=== PATIENT | male | born 1940 | race Caucasian/White ===

== ENCOUNTER 2022-04-28 21:27 | Emergency (ER) | payer MEDICARE, OTHER ==
[2022-04-28 21:38] VITALS: BP 148/89; PULSE 77
[2022-04-28 22:07] LABS: CHLORIDE,CL 99 mmol/L (98-107); SODIUM,NA 133 mmol/L (136-145)
[2022-04-28 22:08] LABS: ESTIMATED GFR 52 mL/min (>=60)
== END 2022-04-28 22:50 | disposition home or self-care (01) ==
LOC: LL.ED 21:27
DX: S50.02XA Contusion of left elbow, initial encounter (principal); S00.83XA Contusion of other part of head, initial encounter; S80.01XA Contusion of right knee, initial encounter; Z88.0 Allergy status to penicillin; Z79.899 Other long term (current) drug therapy; Z79.82 Long term (current) use of aspirin; Z86.73 Personal history of transient ischemic attack (TIA), and cerebral infarction without residual deficits; W10.9XXA Fall (on) (from) unspecified stairs and steps, initial encounter
CPT/HCPCS: 36415; 70450; 72040; 73080-LT; 80053; 81001; 83735; 85025; 99284

== ENCOUNTER 2023-08-26 12:58 | Inpatient (IN) | payer MEDICARE, OTHER ==
[2023-08-26 13:40] LABS: BASOPHILS ABSOLUTE AUTO 0.03 K/uL (0.00-0.20); BASOPHILS PERCENT AUTO 0.3 % (0.0-2.0); EOSINOPHILS ABSOLUTE AUTO 0.15 K/uL (0.00-0.50); EOSINOPHILS PERCENT AUTO 1.6 % (0.0-5.0); HEMATOCRIT 45.2 % (39.0-49.0); HEMOGLOBIN 15.2 g/dL (13.1-16.8); LYMPHOCYTES ABSOLUTE AUTO 1.04 K/uL (0.50-3.50); LYMPHOCYTES PERCENT AUTO 11.1 % (10.0-50.0); MEAN CORPUSCULAR HEMOGLOBIN 34.1 pg (28.2-33.3); MEAN CORPUSCULAR HGB CONC 33.6 g/dL (31.7-36.0); MEAN CORPUSCULAR VOLUME 101.3 fL (84.0-98.0); MONOCYTES ABSOLUTE AUTO 0.97 K/uL (0.00-1.00); MONOCYTES PERCENT AUTO 10.3 % (2.0-14.0); NEUTROPHILS ABSOLUTE AUTO 7.21 K/uL (1.40-7.00); NEUTROPHILS PERCENT AUTO 76.7 % (45.0-80.0); PLATELET COUNT,PLT 234 K/uL (150-350); RED BLOOD CELL COUNT 4.46 M/uL (4.33-5.41); RED CELL DISTRIBUTION WIDTH 12.5 % (11.2-14.1); WHITE BLOOD CELL COUNT,WBC 9.4 K/uL (4.0-10.2)
[2023-08-26] MEDS ORDERED: Morphine 2 MG/ML SYRINGE IVPUSH ONE ×2 (13:57→17:08)
[2023-08-26] MEDS ORDERED: Ondansetron 4 MG/2 ML SDV IVPUSH ONE (13:57)
[2023-08-26 13:59] LABS: ALBUMIN 3.5 g/dL (3.4-5.0); ANION GAP 8.7 meq/L (7-15); BILIRUBIN TOTAL 0.6 mg/dL (0.2-1.0); CALCIUM 8.7 mg/dL (8.5-10.1); CARBON DIOXIDE,CO2 27.3 mmol/L (21.0-32.0); CREATININE 0.97 mg/dL (0.51-1.17); EST CRCL DRUG DOSING (CG) 51.16 mL/min; POTASSIUM,K 4.1 mmol/L (3.5-5.1); PROTEIN TOTAL,TP 6.5 g/dL (6.4-8.2)
[2023-08-26] MEDS: Sodium Chloride 0.9% 10 ML Syringe FLUSH PRN ×3 (14:38→20:03)
[2023-08-26] MEDS ORDERED: Morphine 2 MG/ML SYRINGE SUBCUT PRN (18:10)
[2023-08-26] MEDS ORDERED: Promethazine 25 MG Tab PO PRN (18:11)
[2023-08-26] MEDS ORDERED: Morphine 2 MG/ML SYRINGE SUBCUT SCH (18:30)
[2023-08-26] MEDS ORDERED: Morphine 2 MG/ML SYRINGE IVPUSH SCH (19:30)
[2023-08-26] MEDS ORDERED: buPROPion 150 MG Tab.ER PO SCH (20:00)
[2023-08-26] MEDS: Rosuvastatin 10 MG Tab PO SCH (20:01)
[2023-08-26] MEDS: Sotalol 80 MG Tab PO SCH (20:03)
[2023-08-26] MEDS: Acetaminophen 325 MG Tab PO PRN (22:14)
[2023-08-27] MEDS: Morphine 2 MG/ML SYRINGE IVPUSH SCH ×7 (03:30→23:34)
[2023-08-27] MEDS: Acetaminophen 325 MG Tab PO PRN ×3 (04:16→20:08)
[2023-08-27] MEDS: Morphine 2 MG/ML SYRINGE IVPUSH PRN ×4 (04:17→17:27)
[2023-08-27] MEDS: Sodium Chloride 0.9% 10 ML Syringe FLUSH PRN ×3 (07:16→23:33)
[2023-08-27] MEDS ORDERED: buPROPion 150 MG Tab.ER PO SCH (08:00)
[2023-08-27] MEDS ORDERED: Rosuvastatin 10 MG Tab PO SCH (08:00)
[2023-08-27] MEDS ORDERED: Non-Formulary Medication 1 Each (Glucosamine [Glucosamine Sulfate] 500 MG Cap) PO SCH (08:00)
[2023-08-27] MEDS ORDERED: Enoxaparin 40 MG/0.4 ML Syringe SUBCUT ONE (08:00)
[2023-08-27] MEDS: buPROPion 150 MG Tab.ER PO SCH (08:13)
[2023-08-27] MEDS: Sotalol 80 MG Tab PO SCH ×2 (08:13→20:07)
[2023-08-27] MEDS: Multivitamin Tab PO SCH (08:15)
[2023-08-27] MEDS: Fish Oil/Omega-3 Fatty Acids 1 Gm Cap PO SCH (08:15)
[2023-08-27] MEDS: Rosuvastatin 10 MG Tab PO SCH (08:16)
[2023-08-27] MEDS: Fluticasone NASAL Spray 16 GM Bottle NAS SCH (08:16)
[2023-08-28] MEDS: Morphine 2 MG/ML SYRINGE IVPUSH SCH ×3 (03:44→09:30)
[2023-08-28] MEDS: Acetaminophen 325 MG Tab PO PRN ×3 (04:09→17:52)
[2023-08-28 08:16] LABS: BASOPHILS ABSOLUTE AUTO 0.02 K/uL (0.00-0.20); BASOPHILS PERCENT AUTO 0.2 % (0.0-2.0); EOSINOPHILS ABSOLUTE AUTO 0.11 K/uL (0.00-0.50); EOSINOPHILS PERCENT AUTO 0.8 % (0.0-5.0); HEMATOCRIT 40.6 % (39.0-49.0); HEMOGLOBIN 13.7 g/dL (13.1-16.8); LYMPHOCYTES ABSOLUTE AUTO 1.69 K/uL (0.50-3.50); MEAN CORPUSCULAR HEMOGLOBIN 34.3 pg (28.2-33.3); MEAN CORPUSCULAR HGB CONC 33.7 g/dL (31.7-36.0); MEAN CORPUSCULAR VOLUME 101.8 fL (84.0-98.0); MONOCYTES ABSOLUTE AUTO 1.63 K/uL (0.00-1.00); MONOCYTES PERCENT AUTO 12.6 % (2.0-14.0); NEUTROPHILS ABSOLUTE AUTO 9.51 K/uL (1.40-7.00); NEUTROPHILS PERCENT AUTO 73.4 % (45.0-80.0); PLATELET COUNT,PLT 207 K/uL (150-350); RED BLOOD CELL COUNT 3.99 M/uL (4.33-5.41); RED CELL DISTRIBUTION WIDTH 12.4 % (11.2-14.1)
[2023-08-28] MEDS: Sotalol 80 MG Tab PO SCH ×2 (08:43→19:54)
[2023-08-28] MEDS: Multivitamin Tab PO SCH (08:44)
[2023-08-28] MEDS: buPROPion 150 MG Tab.ER PO SCH (08:45)
[2023-08-28] MEDS: Fish Oil/Omega-3 Fatty Acids 1 Gm Cap PO SCH (08:45)
[2023-08-28] MEDS: Fluticasone NASAL Spray 16 GM Bottle NAS SCH (08:46)
[2023-08-28] MEDS: Rosuvastatin 10 MG Tab PO SCH (08:46)
[2023-08-28 08:50] LABS: CALCIUM 8.4 mg/dL (8.5-10.1); CREATININE 1.08 mg/dL (0.51-1.17); EST CRCL DRUG DOSING (CG) 42.63 mL/min; POTASSIUM,K 4.3 mmol/L (3.5-5.1)
[2023-08-28 08:52] LABS: ANION GAP 12.3 meq/L (7-15)
[2023-08-28] MEDS ORDERED: Ondansetron 4 MG Tab.DIS PO PRN (11:59)
[2023-08-28] MEDS ORDERED: Naloxone 0.4 MG/ML SDV IVPUSH PRN (12:01)
[2023-08-28] MEDS ORDERED: Bisacodyl 5 MG Tab PO PRN (12:07)
[2023-08-28] MEDS: Polyethylene Glycol 3350 Powder 17 GM Packet PO PRN (12:25)
[2023-08-28] MEDS: Omeprazole 20 MG Cap.CR PO SCH (12:27)
[2023-08-28] MEDS: Ketorolac 15 MG/ML SDV IVPUSH SCH ×2 (12:28→19:55)
[2023-08-28] MEDS: Sodium Chloride 0.9% 10 ML Syringe FLUSH PRN ×2 (12:30→22:01)
[2023-08-28] MEDS ORDERED: Tamsulosin 0.4 MG Cap.ER PO SCH (19:30)
[2023-08-28] MEDS ORDERED: Tamsulosin 0.4 MG Cap.ER PO ONE (20:30)
[2023-08-28] MEDS: fentaNYL 50 MCG/ML SDV IVPUSH PRN (22:01)
[2023-08-29] MEDS: Ketorolac 15 MG/ML SDV IVPUSH SCH ×3 (03:48→19:15)
[2023-08-29] MEDS: Sodium Chloride 0.9% 10 ML Syringe FLUSH PRN ×6 (03:49→23:40)
[2023-08-29] MEDS: Acetaminophen 325 MG Tab PO PRN ×2 (06:51→15:01)
[2023-08-29] MEDS: fentaNYL 50 MCG/ML SDV IVPUSH PRN ×3 (06:52→23:40)
[2023-08-29] MEDS: Polyethylene Glycol 3350 Powder 17 GM Packet PO PRN (08:34)
[2023-08-29] MEDS: Fish Oil/Omega-3 Fatty Acids 1 Gm Cap PO SCH (08:35)
[2023-08-29] MEDS: Multivitamin Tab PO SCH (08:36)
[2023-08-29] MEDS: Rosuvastatin 10 MG Tab PO SCH (08:36)
[2023-08-29] MEDS: Omeprazole 20 MG Cap.CR PO SCH (08:36)
[2023-08-29] MEDS: Tamsulosin 0.4 MG Cap.ER PO SCH (08:37)
[2023-08-29] MEDS: buPROPion 150 MG Tab.ER PO SCH (08:37)
[2023-08-29] MEDS: Sotalol 80 MG Tab PO SCH ×2 (08:38→19:17)
[2023-08-29] MEDS: Fluticasone NASAL Spray 16 GM Bottle NAS SCH (08:41)
[2023-08-29 10:40] LABS: BASOPHILS ABSOLUTE AUTO 0.02 K/uL (0.00-0.20); BASOPHILS PERCENT AUTO 0.2 % (0.0-2.0); EOSINOPHILS ABSOLUTE AUTO 0.11 K/uL (0.00-0.50); EOSINOPHILS PERCENT AUTO 1.2 % (0.0-5.0); HEMATOCRIT 33.2 % (39.0-49.0); HEMOGLOBIN 11.2 g/dL (13.1-16.8); LYMPHOCYTES ABSOLUTE AUTO 1.08 K/uL (0.50-3.50); LYMPHOCYTES PERCENT AUTO 11.3 % (10.0-50.0); MEAN CORPUSCULAR HEMOGLOBIN 34.1 pg (28.2-33.3); MEAN CORPUSCULAR HGB CONC 33.7 g/dL (31.7-36.0); MEAN CORPUSCULAR VOLUME 101.2 fL (84.0-98.0); MONOCYTES ABSOLUTE AUTO 1.33 K/uL (0.00-1.00); NEUTROPHILS ABSOLUTE AUTO 6.99 K/uL (1.40-7.00); NEUTROPHILS PERCENT AUTO 73.3 % (45.0-80.0); PLATELET COUNT,PLT 173 K/uL (150-350); RED BLOOD CELL COUNT 3.28 M/uL (4.33-5.41); RED CELL DISTRIBUTION WIDTH 12.3 % (11.2-14.1); WHITE BLOOD CELL COUNT,WBC 9.5 K/uL (4.0-10.2)
[2023-08-29 10:54] LABS: ALBUMIN 2.7 g/dL (3.4-5.0); ANION GAP 11.7 meq/L (7-15); BILIRUBIN TOTAL 0.7 mg/dL (0.2-1.0); CARBON DIOXIDE,CO2 26.6 mmol/L (21.0-32.0); CREATININE 1.06 mg/dL (0.51-1.17); EST CRCL DRUG DOSING (CG) 43.44 mL/min; POTASSIUM,K 4.3 mmol/L (3.5-5.1); PROTEIN TOTAL,TP 5.3 g/dL (6.4-8.2)
[2023-08-29 11:20] LABS: INR 1.2 (0.9-1.1); PROTHROMBIN TIME 11.6 SEC (9.0-11.1)
[2023-08-29 11:53] LABS: APPEARANCE,URINE CLOUDY; BILIRUBIN,URINE NEGATIVE (NEGATIVE); COLOR,URINE DARK YELLOW; GLUCOSE,URINE NEGATIVE (NEGATIVE); KETONES,URINE NEGATIVE (NEGATIVE); LEUKOCYTE ESTERASE,URINE NEGATIVE (NEGATIVE); NITRITE,URINE NEGATIVE (NEGATIVE); OCCULT BLOOD,URINE LARGE (NEGATIVE); PH,URINE 5.5 (5.0-9.0); PROTEIN,URINE 30 mg/dL (NEGATIVE); UROBILINOGEN,URINE 0.2 E.U./dL (0.2-1.0)
[2023-08-29 12:03] LABS: RBC,URINE 50-75 /HPF; WBC,URINE 0-5 /HPF
[2023-08-30] MEDS ORDERED: traZODone 50 MG Tab PO PRN (02:03)
[2023-08-30] MEDS: traMADol 50 MG Tab PO SCH ×4 (02:52→19:41)
[2023-08-30] MEDS: Ketorolac 15 MG/ML SDV IVPUSH SCH ×3 (04:46→19:41)
[2023-08-30] MEDS: Sodium Chloride 0.9% 10 ML Syringe FLUSH PRN ×4 (04:47→22:54)
[2023-08-30] MEDS: Polyethylene Glycol 3350 Powder 17 GM Packet PO PRN (08:17)
[2023-08-30] MEDS: Rosuvastatin 10 MG Tab PO SCH (08:18)
[2023-08-30] MEDS: Tamsulosin 0.4 MG Cap.ER PO SCH (08:18)
[2023-08-30] MEDS: Fish Oil/Omega-3 Fatty Acids 1 Gm Cap PO SCH (08:19)
[2023-08-30] MEDS: Omeprazole 20 MG Cap.CR PO SCH (08:19)
[2023-08-30] MEDS: buPROPion 150 MG Tab.ER PO SCH (08:19)
[2023-08-30] MEDS: Multivitamin Tab PO SCH (08:20)
[2023-08-30 08:23] LABS: BILIRUBIN TOTAL 0.9 mg/dL (0.2-1.0); CALCIUM 8.1 mg/dL (8.5-10.1); CARBON DIOXIDE,CO2 27.4 mmol/L (21.0-32.0); EST CRCL DRUG DOSING (CG) 46.04 mL/min; POTASSIUM,K 4.3 mmol/L (3.5-5.1); PROTEIN TOTAL,TP 5.9 g/dL (6.4-8.2)
[2023-08-30 08:24] LABS: ANION GAP 10.9 meq/L (7-15)
[2023-08-30] MEDS: Fluticasone NASAL Spray 16 GM Bottle NAS SCH (08:26)
[2023-08-30] MEDS: Sotalol 80 MG Tab PO SCH ×2 (09:00→19:39)
[2023-08-30] MEDS ORDERED: Morphine 2 MG/ML SYRINGE SUBCUT PRN (10:50)
[2023-08-30] MEDS ORDERED: Morphine 2 MG/ML SYRINGE IVPUSH PRN (11:30)
[2023-08-30] MEDS: Morphine 2 MG/ML SYRINGE IVPUSH SCH ×3 (11:33→22:53)
[2023-08-31] MEDS: traMADol 50 MG Tab PO SCH ×2 (01:38→08:19)
[2023-08-31] MEDS: Ketorolac 15 MG/ML SDV IVPUSH SCH (03:19)
[2023-08-31] MEDS: Sodium Chloride 0.9% 10 ML Syringe FLUSH PRN (03:20)
[2023-08-31] MEDS: Morphine 2 MG/ML SYRINGE IVPUSH SCH ×2 (05:49→11:55)
[2023-08-31 08:09] LABS: ANION GAP 11.4 meq/L (7-15); CARBON DIOXIDE,CO2 26.3 mmol/L (21.0-32.0); CREATININE 0.88 mg/dL (0.51-1.17); EST CRCL DRUG DOSING (CG) 52.32 mL/min; POTASSIUM,K 4.7 mmol/L (3.5-5.1)
[2023-08-31] MEDS: Polyethylene Glycol 3350 Powder 17 GM Packet PO PRN (08:17)
[2023-08-31] MEDS: buPROPion 150 MG Tab.ER PO SCH (08:17)
[2023-08-31] MEDS: Tamsulosin 0.4 MG Cap.ER PO SCH (08:18)
[2023-08-31] MEDS: Multivitamin Tab PO SCH (08:18)
[2023-08-31] MEDS: Omeprazole 20 MG Cap.CR PO SCH (08:18)
[2023-08-31] MEDS: Fish Oil/Omega-3 Fatty Acids 1 Gm Cap PO SCH (08:18)
[2023-08-31] MEDS: Fluticasone NASAL Spray 16 GM Bottle NAS SCH (08:18)
[2023-08-31] MEDS: Rosuvastatin 10 MG Tab PO SCH (08:18)
[2023-08-31] MEDS: Sotalol 80 MG Tab PO SCH (08:23)
[2023-08-31 11:29] LABS: ALANINE AMINOTRANSFERASE,ALT 63 U/L (12-78); ASPARTATE AMNIOTRANSFERASE,AST 36 U/L (15-37)
[2023-08-31] MEDS ORDERED: Bisacodyl 5 MG Tab PO SCH (11:30)
[2023-08-31] MEDS ORDERED: oxyCODONE 5 MG Tab PO SCH ×2 (12:00→22:00)
[2023-08-31] MEDS ORDERED: oxyCODONE 5 MG Tab PO PRN (15:23)
[2023-08-31 15:46] VITALS: BP 154/78; PULSE 74
[2023-08-31] MEDS ORDERED: Acetaminophen 325 MG Tab PO SCH (16:00)
[2023-09-01] MEDS ORDERED: Polyethylene Glycol 3350 Powder 17 GM Packet PO SCH (08:00)
== END 2023-08-31 15:53 | disposition swing bed (61) | DRG 563 ==
LOC: LL.ED 12:58 → LL.MS 16:34
PROVIDERS: ADMIT Emergency Medicine; ATTEND Emergency Medicine
DX: S42.201A Unspecified fracture of upper end of right humerus, initial encounter for closed fracture (principal); S22.31XA Fracture of one rib, right side, initial encounter for closed fracture; F05 Delirium due to known physiological condition; K59.03 Drug induced constipation; T50.995A Adverse effect of other drugs, medicaments and biological substances, initial encounter; G47.00 Insomnia, unspecified; Z66 Do not resuscitate; H91.90 Unspecified hearing loss, unspecified ear; E78.00 Pure hypercholesterolemia, unspecified; E78.5 Hyperlipidemia, unspecified; M19.90 Unspecified osteoarthritis, unspecified site; W18.30XA Fall on same level, unspecified, initial encounter; M81.0 Age-related osteoporosis without current pathological fracture; F32.A Depression, unspecified; Z86.73 Personal history of transient ischemic attack (TIA), and cerebral infarction without residual deficits; Z79.82 Long term (current) use of aspirin; Z79.899 Other long term (current) drug therapy; Z88.0 Allergy status to penicillin; Z98.890 Other specified postprocedural states; Y92.89 Other specified places as the place of occurrence of the external cause
CPT/HCPCS: 36415; 71101-RT; 73020-RT; 73030-RT; 80048; 80053; 81001; 84450; 84460; 85018; 85025; 85610; 93005; 96374; 96375; 96376; 97110-GP; 97162-GP; 97165-GO; 97530-GO; 97530-GP; 97535-GO; 99284-25; A9270-GY; J1650; J1885; J2270; J2405; J3010; J3490

== ENCOUNTER 2023-08-31 11:21 | Inpatient (IN) | payer MEDICARE, OTHER ==
[2023-08-31] MEDS ORDERED: Naloxone 0.4 MG/ML SDV IVPUSH PRN (15:05)
[2023-08-31] MEDS ORDERED: traZODone 50 MG Tab PO PRN (15:05)
[2023-08-31] MEDS ORDERED: Morphine 2 MG/ML SYRINGE IVPUSH PRN (15:05)
[2023-08-31] MEDS ORDERED: Sodium Chloride 0.9% 10 ML Syringe FLUSH PRN ×2 (15:05)
[2023-08-31] MEDS ORDERED: Ondansetron 4 MG Tab.DIS PO PRN (15:05)
[2023-08-31] MEDS ORDERED: oxyCODONE 5 MG Tab PO PRN (15:34)
[2023-08-31] MEDS: Acetaminophen 325 MG Tab PO SCH ×2 (16:19→21:23)
[2023-08-31] MEDS ORDERED: Fenofibrate,Micronized 67 MG Cap PO SCH (16:45)
[2023-08-31] MEDS: Sotalol 80 MG Tab PO SCH (19:42)
[2023-08-31] MEDS: oxyCODONE 5 MG Tab PO SCH (21:23)
[2023-09-01] MEDS: oxyCODONE 5 MG Tab PO SCH (03:05)
[2023-09-01] MEDS: Acetaminophen 325 MG Tab PO SCH ×4 (03:05→23:14)
[2023-09-01] MEDS: Multivitamin Tab PO SCH (08:13)
[2023-09-01] MEDS: buPROPion 150 MG Tab.ER PO SCH (08:13)
[2023-09-01] MEDS: Polyethylene Glycol 3350 Powder 17 GM Packet PO SCH (08:13)
[2023-09-01] MEDS: Fish Oil/Omega-3 Fatty Acids 1 Gm Cap PO SCH (08:13)
[2023-09-01] MEDS: Omeprazole 20 MG Cap.CR PO SCH (08:14)
[2023-09-01] MEDS: Rosuvastatin 10 MG Tab PO SCH (08:14)
[2023-09-01] MEDS: Tamsulosin 0.4 MG Cap.ER PO SCH (08:14)
[2023-09-01] MEDS: Bisacodyl 5 MG Tab PO SCH (08:14)
[2023-09-01] MEDS: Sotalol 80 MG Tab PO SCH ×2 (08:17→20:43)
[2023-09-01] MEDS: Fluticasone NASAL Spray 16 GM Bottle NASBOTH SCH (08:17)
[2023-09-01] MEDS ORDERED: Lactulose Soln 10 GM/15 ML 30 ML UD Cup PO ONE ×2 (15:25→20:00)
[2023-09-01] MEDS ORDERED: Bisacodyl 10 MG Supp RECTAL ONE (20:01)
[2023-09-01] MEDS: traMADol 50 MG Tab PO PRN (20:44)
[2023-09-01] MEDS: Temazepam 15 MG Cap PO PRN (20:45)
[2023-09-02] MEDS: traMADol 50 MG Tab PO PRN (03:42)
[2023-09-02] MEDS: Acetaminophen 325 MG Tab PO SCH ×4 (05:05→21:27)
[2023-09-02] MEDS: Polyethylene Glycol 3350 Powder 17 GM Packet PO SCH (08:13)
[2023-09-02] MEDS: Fish Oil/Omega-3 Fatty Acids 1 Gm Cap PO SCH (08:14)
[2023-09-02] MEDS: Tamsulosin 0.4 MG Cap.ER PO SCH (08:15)
[2023-09-02] MEDS: Bisacodyl 5 MG Tab PO SCH (08:16)
[2023-09-02] MEDS: Omeprazole 20 MG Cap.CR PO SCH (08:16)
[2023-09-02] MEDS: Rosuvastatin 10 MG Tab PO SCH (08:17)
[2023-09-02] MEDS: buPROPion 150 MG Tab.ER PO SCH (08:17)
[2023-09-02] MEDS: Multivitamin Tab PO SCH (08:17)
[2023-09-02] MEDS: Fluticasone NASAL Spray 16 GM Bottle NASBOTH SCH (08:18)
[2023-09-02] MEDS: Sotalol 80 MG Tab PO SCH ×2 (08:26→19:10)
[2023-09-02] MEDS ORDERED: Lactulose Soln 10 GM/15 ML 30 ML UD Cup PO ONE (09:00)
[2023-09-02 09:33] LABS: BASOPHILS ABSOLUTE AUTO 0.03 K/uL (0.00-0.20); BASOPHILS PERCENT AUTO 0.3 % (0.0-2.0); EOSINOPHILS ABSOLUTE AUTO 0.37 K/uL (0.00-0.50); EOSINOPHILS PERCENT AUTO 3.9 % (0.0-5.0); HEMATOCRIT 34.2 % (39.0-49.0); HEMOGLOBIN 11.2 g/dL (13.1-16.8); LYMPHOCYTES ABSOLUTE AUTO 1.26 K/uL (0.50-3.50); LYMPHOCYTES PERCENT AUTO 13.2 % (10.0-50.0); MEAN CORPUSCULAR HEMOGLOBIN 33.7 pg (28.2-33.3); MEAN CORPUSCULAR HGB CONC 32.7 g/dL (31.7-36.0); MONOCYTES ABSOLUTE AUTO 1.18 K/uL (0.00-1.00); MONOCYTES PERCENT AUTO 12.3 % (2.0-14.0); NEUTROPHILS ABSOLUTE AUTO 6.72 K/uL (1.40-7.00); NEUTROPHILS PERCENT AUTO 70.3 % (45.0-80.0); PLATELET COUNT,PLT 273 K/uL (150-350); RED BLOOD CELL COUNT 3.32 M/uL (4.33-5.41); RED CELL DISTRIBUTION WIDTH 12.6 % (11.2-14.1); WHITE BLOOD CELL COUNT,WBC 9.6 K/uL (4.0-10.2)
[2023-09-02 09:47] LABS: CALCIUM 8.1 mg/dL (8.5-10.1); CARBON DIOXIDE,CO2 27.5 mmol/L (21.0-32.0); CREATININE 1.04 mg/dL (0.51-1.17); EST CRCL DRUG DOSING (CG) 42.55 mL/min; POTASSIUM,K 4.2 mmol/L (3.5-5.1)
[2023-09-02 09:50] LABS: ANION GAP 11.7 meq/L (7-15)
[2023-09-02] MEDS: Temazepam 15 MG Cap PO PRN (23:22)
[2023-09-03] MEDS: traMADol 50 MG Tab PO PRN ×2 (01:57→19:30)
[2023-09-03] MEDS: Acetaminophen 325 MG Tab PO SCH ×4 (03:08→22:19)
[2023-09-03] MEDS: Fluticasone NASAL Spray 16 GM Bottle NASBOTH SCH (07:26)
[2023-09-03] MEDS: Sotalol 80 MG Tab PO SCH ×2 (07:27→19:31)
[2023-09-03] MEDS: Polyethylene Glycol 3350 Powder 17 GM Packet PO SCH (07:27)
[2023-09-03] MEDS: buPROPion 150 MG Tab.ER PO SCH (07:28)
[2023-09-03] MEDS: Tamsulosin 0.4 MG Cap.ER PO SCH (07:28)
[2023-09-03] MEDS: Rosuvastatin 10 MG Tab PO SCH (07:28)
[2023-09-03] MEDS: Bisacodyl 5 MG Tab PO SCH (07:28)
[2023-09-03] MEDS: Omeprazole 20 MG Cap.CR PO SCH (07:28)
[2023-09-03] MEDS: Fish Oil/Omega-3 Fatty Acids 1 Gm Cap PO SCH (07:29)
[2023-09-03] MEDS: Multivitamin Tab PO SCH (07:29)
[2023-09-03] MEDS: Melatonin 3 MG Tab PO PRN (22:19)
[2023-09-04] MEDS: traMADol 50 MG Tab PO PRN ×4 (01:47→19:05)
[2023-09-04] MEDS: Acetaminophen 325 MG Tab PO SCH ×4 (03:41→22:23)
[2023-09-04] MEDS: Fluticasone NASAL Spray 16 GM Bottle NASBOTH SCH (08:19)
[2023-09-04] MEDS: Polyethylene Glycol 3350 Powder 17 GM Packet PO SCH (08:20)
[2023-09-04] MEDS: Rosuvastatin 10 MG Tab PO SCH (08:20)
[2023-09-04] MEDS: buPROPion 150 MG Tab.ER PO SCH (08:20)
[2023-09-04] MEDS: Bisacodyl 5 MG Tab PO SCH (08:22)
[2023-09-04] MEDS: Tamsulosin 0.4 MG Cap.ER PO SCH (08:22)
[2023-09-04] MEDS: Sotalol 80 MG Tab PO SCH ×2 (08:22→19:04)
[2023-09-04] MEDS: Omeprazole 20 MG Cap.CR PO SCH (08:22)
[2023-09-04] MEDS: Fish Oil/Omega-3 Fatty Acids 1 Gm Cap PO SCH (08:23)
[2023-09-04] MEDS: Multivitamin Tab PO SCH (08:23)
[2023-09-04] MEDS: Menthol 10%/Methyl Salicylate 15% 85 GM Tube TOP PRN (11:20)
[2023-09-04] MEDS: Melatonin 3 MG Tab PO PRN (22:23)
[2023-09-05] MEDS: Acetaminophen 325 MG Tab PO SCH ×4 (03:48→21:34)
[2023-09-05] MEDS: traMADol 50 MG Tab PO PRN ×3 (03:49→21:35)
[2023-09-05] MEDS: Rosuvastatin 10 MG Tab PO SCH (08:22)
[2023-09-05] MEDS: Fluticasone NASAL Spray 16 GM Bottle NASBOTH SCH (08:22)
[2023-09-05] MEDS: buPROPion 150 MG Tab.ER PO SCH (08:23)
[2023-09-05] MEDS: Tamsulosin 0.4 MG Cap.ER PO SCH (08:23)
[2023-09-05] MEDS: Multivitamin Tab PO SCH (08:23)
[2023-09-05] MEDS: Fish Oil/Omega-3 Fatty Acids 1 Gm Cap PO SCH (08:23)
[2023-09-05] MEDS: Omeprazole 20 MG Cap.CR PO SCH (08:23)
[2023-09-05] MEDS: Polyethylene Glycol 3350 Powder 17 GM Packet PO SCH (08:24)
[2023-09-05] MEDS: Bisacodyl 5 MG Tab PO SCH (08:24)
[2023-09-05] MEDS: Menthol 10%/Methyl Salicylate 15% 85 GM Tube TOP PRN ×2 (08:29→12:11)
[2023-09-05] MEDS: Sotalol 80 MG Tab PO SCH ×2 (08:29→19:33)
[2023-09-05 10:07] LABS: BASOPHILS ABSOLUTE AUTO 0.02 K/uL (0.00-0.20); BASOPHILS PERCENT AUTO 0.2 % (0.0-2.0); EOSINOPHILS ABSOLUTE AUTO 0.31 K/uL (0.00-0.50); EOSINOPHILS PERCENT AUTO 2.8 % (0.0-5.0); HEMATOCRIT 33.3 % (39.0-49.0); HEMOGLOBIN 11.3 g/dL (13.1-16.8); LYMPHOCYTES ABSOLUTE AUTO 1.01 K/uL (0.50-3.50); LYMPHOCYTES PERCENT AUTO 9.2 % (10.0-50.0); MEAN CORPUSCULAR HEMOGLOBIN 34.6 pg (28.2-33.3); MEAN CORPUSCULAR HGB CONC 33.9 g/dL (31.7-36.0); MEAN CORPUSCULAR VOLUME 101.8 fL (84.0-98.0); MONOCYTES ABSOLUTE AUTO 1.43 K/uL (0.00-1.00); MONOCYTES PERCENT AUTO 13.1 % (2.0-14.0); NEUTROPHILS ABSOLUTE AUTO 8.17 K/uL (1.40-7.00); NEUTROPHILS PERCENT AUTO 74.7 % (45.0-80.0); PLATELET COUNT,PLT 357 K/uL (150-350); RED BLOOD CELL COUNT 3.27 M/uL (4.33-5.41); RED CELL DISTRIBUTION WIDTH 12.9 % (11.2-14.1); WHITE BLOOD CELL COUNT,WBC 10.9 K/uL (4.0-10.2)
[2023-09-05 10:38] LABS: ANION GAP 14.3 meq/L (7-15); CALCIUM 8.2 mg/dL (8.5-10.1); CARBON DIOXIDE,CO2 25.8 mmol/L (21.0-32.0); CREATININE 1.14 mg/dL (0.51-1.17); EST CRCL DRUG DOSING (CG) 38.82 mL/min; POTASSIUM,K 4.1 mmol/L (3.5-5.1)
[2023-09-05 14:45] LABS: APPEARANCE,URINE CLEAR; BILIRUBIN,URINE NEGATIVE (NEGATIVE); COLOR,URINE DARK YELLOW; GLUCOSE,URINE NEGATIVE (NEGATIVE); KETONES,URINE NEGATIVE (NEGATIVE); LEUKOCYTE ESTERASE,URINE NEGATIVE (NEGATIVE); NITRITE,URINE NEGATIVE (NEGATIVE); OCCULT BLOOD,URINE MODERATE (NEGATIVE); PH,URINE 6.5 (5.0-9.0); PROTEIN,URINE NEGATIVE (NEGATIVE)
[2023-09-05 15:05] LABS: AMORPHOUS SEDIMENT,URINE RARE /HPF (0/HPF); BACTERIA,URINE NOT SEEN /HPF (NONE TO FEW); EPITHELIAL CELLS,URINE RARE /LPF; RBC,URINE 20-30 /HPF; WBC,URINE 0-5 /HPF
[2023-09-05] MEDS: Melatonin 3 MG Tab PO PRN (21:33)
[2023-09-06] MEDS: Acetaminophen 325 MG Tab PO SCH ×4 (03:51→21:07)
[2023-09-06] MEDS: traMADol 50 MG Tab PO PRN (03:52)
[2023-09-06] MEDS: Levothyroxine 112 MCG Tab PO SCH (07:41)
[2023-09-06] MEDS: Tamsulosin 0.4 MG Cap.ER PO SCH (07:44)
[2023-09-06] MEDS: Sotalol 80 MG Tab PO SCH ×2 (07:45→21:07)
[2023-09-06] MEDS: Rosuvastatin 10 MG Tab PO SCH (07:46)
[2023-09-06] MEDS: Fluticasone NASAL Spray 16 GM Bottle NASBOTH SCH (07:47)
[2023-09-06] MEDS: Bisacodyl 5 MG Tab PO SCH (07:47)
[2023-09-06] MEDS: Fish Oil/Omega-3 Fatty Acids 1 Gm Cap PO SCH (07:47)
[2023-09-06] MEDS: Multivitamin Tab PO SCH (07:48)
[2023-09-06] MEDS: Omeprazole 20 MG Cap.CR PO SCH (07:48)
[2023-09-06] MEDS: Polyethylene Glycol 3350 Powder 17 GM Packet PO SCH (07:48)
[2023-09-06] MEDS: Cholecalciferol (Vitamin D3) 10 MCG Tab PO SCH (07:48)
[2023-09-06] MEDS: buPROPion 150 MG Tab.ER PO SCH (07:49)
[2023-09-07] MEDS: Melatonin 3 MG Tab PO PRN ×2 (00:08→21:02)
[2023-09-07] MEDS: Acetaminophen 325 MG Tab PO SCH ×4 (03:02→21:02)
[2023-09-07] MEDS: Rosuvastatin 10 MG Tab PO SCH (08:34)
[2023-09-07] MEDS: Cholecalciferol (Vitamin D3) 10 MCG Tab PO SCH (08:35)
[2023-09-07] MEDS: Tamsulosin 0.4 MG Cap.ER PO SCH (08:35)
[2023-09-07] MEDS: Multivitamin Tab PO SCH (08:36)
[2023-09-07] MEDS: Fish Oil/Omega-3 Fatty Acids 1 Gm Cap PO SCH (08:36)
[2023-09-07] MEDS: Omeprazole 20 MG Cap.CR PO SCH (08:36)
[2023-09-07] MEDS: Levothyroxine 112 MCG Tab PO SCH (08:37)
[2023-09-07] MEDS: buPROPion 150 MG Tab.ER PO SCH (08:37)
[2023-09-07] MEDS: Fluticasone NASAL Spray 16 GM Bottle NASBOTH SCH (08:38)
[2023-09-07] MEDS: Sotalol 80 MG Tab PO SCH ×2 (08:42→21:01)
[2023-09-07] MEDS: Polyethylene Glycol 3350 Powder 17 GM Packet PO SCH (08:42)
[2023-09-07] MEDS: Bisacodyl 5 MG Tab PO SCH (08:42)
[2023-09-07] MEDS ORDERED: Temazepam 15 MG Cap PO PRN (10:00)
[2023-09-07] MEDS: Sodium Chloride 1 GM Tab PO SCH (12:44)
[2023-09-08] MEDS: Menthol 10%/Methyl Salicylate 15% 85 GM Tube TOP PRN ×2 (03:46→19:59)
[2023-09-08] MEDS: Acetaminophen 325 MG Tab PO SCH ×4 (03:46→23:38)
[2023-09-08 07:36] LABS: BASOPHILS ABSOLUTE AUTO 0.03 K/uL (0.00-0.20); BASOPHILS PERCENT AUTO 0.2 % (0.0-2.0); EOSINOPHILS ABSOLUTE AUTO 0.29 K/uL (0.00-0.50); EOSINOPHILS PERCENT AUTO 2.3 % (0.0-5.0); HEMATOCRIT 33.6 % (39.0-49.0); HEMOGLOBIN 11.5 g/dL (13.1-16.8); LYMPHOCYTES ABSOLUTE AUTO 1.52 K/uL (0.50-3.50); LYMPHOCYTES PERCENT AUTO 12.2 % (10.0-50.0); MEAN CORPUSCULAR HEMOGLOBIN 34.5 pg (28.2-33.3); MEAN CORPUSCULAR HGB CONC 34.2 g/dL (31.7-36.0); MEAN CORPUSCULAR VOLUME 100.9 fL (84.0-98.0); MONOCYTES ABSOLUTE AUTO 1.53 K/uL (0.00-1.00); MONOCYTES PERCENT AUTO 12.3 % (2.0-14.0); NEUTROPHILS ABSOLUTE AUTO 9.05 K/uL (1.40-7.00); PLATELET COUNT,PLT 398 K/uL (150-350); RED BLOOD CELL COUNT 3.33 M/uL (4.33-5.41); WHITE BLOOD CELL COUNT,WBC 12.4 K/uL (4.0-10.2)
[2023-09-08] MEDS: Rosuvastatin 10 MG Tab PO SCH (07:41)
[2023-09-08] MEDS: Tamsulosin 0.4 MG Cap.ER PO SCH (07:41)
[2023-09-08] MEDS: Multivitamin Tab PO SCH (07:41)
[2023-09-08] MEDS: Cholecalciferol (Vitamin D3) 10 MCG Tab PO SCH (07:41)
[2023-09-08] MEDS: Sotalol 80 MG Tab PO SCH ×2 (07:41→19:58)
[2023-09-08] MEDS: Omeprazole 20 MG Cap.CR PO SCH (07:41)
[2023-09-08] MEDS: Bisacodyl 5 MG Tab PO SCH (07:43)
[2023-09-08] MEDS: Sodium Chloride 1 GM Tab PO SCH (07:43)
[2023-09-08] MEDS: Fish Oil/Omega-3 Fatty Acids 1 Gm Cap PO SCH (07:43)
[2023-09-08] MEDS: buPROPion 150 MG Tab.ER PO SCH (07:43)
[2023-09-08] MEDS: Levothyroxine 112 MCG Tab PO SCH (07:43)
[2023-09-08] MEDS: Fluticasone NASAL Spray 16 GM Bottle NASBOTH SCH (07:45)
[2023-09-08] MEDS: Polyethylene Glycol 3350 Powder 17 GM Packet PO SCH (07:48)
[2023-09-08 08:16] LABS: ALBUMIN 2.9 g/dL (3.4-5.0); BILIRUBIN TOTAL 1.5 mg/dL (0.2-1.0); CALCIUM 8.2 mg/dL (8.5-10.1); CARBON DIOXIDE,CO2 25.3 mmol/L (21.0-32.0); CREATININE 1.03 mg/dL (0.51-1.17); EST CRCL DRUG DOSING (CG) 42.97 mL/min; POTASSIUM,K 4.1 mmol/L (3.5-5.1); PROTEIN TOTAL,TP 5.8 g/dL (6.4-8.2)
[2023-09-08 08:28] LABS: ANION GAP 11.8 meq/L (7-15)
[2023-09-08] MEDS: Melatonin 3 MG Tab PO PRN (19:58)
[2023-09-09] MEDS: Acetaminophen 325 MG Tab PO SCH ×4 (04:20→21:24)
[2023-09-09] MEDS: Levothyroxine 112 MCG Tab PO SCH (08:00)
[2023-09-09] MEDS: Fish Oil/Omega-3 Fatty Acids 1 Gm Cap PO SCH (08:26)
[2023-09-09] MEDS: Cholecalciferol (Vitamin D3) 10 MCG Tab PO SCH (08:26)
[2023-09-09] MEDS: Polyethylene Glycol 3350 Powder 17 GM Packet PO SCH (08:26)
[2023-09-09] MEDS: Omeprazole 20 MG Cap.CR PO SCH (08:27)
[2023-09-09] MEDS: Sotalol 80 MG Tab PO SCH ×2 (08:27→19:23)
[2023-09-09] MEDS: Tamsulosin 0.4 MG Cap.ER PO SCH (08:27)
[2023-09-09] MEDS: buPROPion 150 MG Tab.ER PO SCH (08:27)
[2023-09-09] MEDS: Rosuvastatin 10 MG Tab PO SCH (08:27)
[2023-09-09] MEDS: Sodium Chloride 1 GM Tab PO SCH (08:27)
[2023-09-09] MEDS: Menthol 10%/Methyl Salicylate 15% 85 GM Tube TOP PRN (08:28)
[2023-09-09] MEDS: Bisacodyl 5 MG Tab PO SCH (08:28)
[2023-09-09] MEDS: Multivitamin Tab PO SCH (08:28)
[2023-09-09] MEDS: Fluticasone NASAL Spray 16 GM Bottle NASBOTH SCH (08:28)
[2023-09-09 10:02] LABS: BASOPHILS ABSOLUTE AUTO 0.03 K/uL (0.00-0.20); BASOPHILS PERCENT AUTO 0.3 % (0.0-2.0); EOSINOPHILS ABSOLUTE AUTO 0.37 K/uL (0.00-0.50); EOSINOPHILS PERCENT AUTO 3.2 % (0.0-5.0); HEMATOCRIT 38.5 % (39.0-49.0); HEMOGLOBIN 12.9 g/dL (13.1-16.8); LYMPHOCYTES ABSOLUTE AUTO 1.36 K/uL (0.50-3.50); LYMPHOCYTES PERCENT AUTO 11.7 % (10.0-50.0); MEAN CORPUSCULAR HEMOGLOBIN 34.2 pg (28.2-33.3); MEAN CORPUSCULAR HGB CONC 33.5 g/dL (31.7-36.0); MEAN CORPUSCULAR VOLUME 102.1 fL (84.0-98.0); MONOCYTES ABSOLUTE AUTO 1.36 K/uL (0.00-1.00); MONOCYTES PERCENT AUTO 11.7 % (2.0-14.0); NEUTROPHILS ABSOLUTE AUTO 8.53 K/uL (1.40-7.00); NEUTROPHILS PERCENT AUTO 73.1 % (45.0-80.0); PLATELET COUNT,PLT 469 K/uL (150-350); RED BLOOD CELL COUNT 3.77 M/uL (4.33-5.41); RED CELL DISTRIBUTION WIDTH 13.7 % (11.2-14.1); WHITE BLOOD CELL COUNT,WBC 11.7 K/uL (4.0-10.2)
[2023-09-09 10:16] LABS: ALBUMIN 3.2 g/dL (3.4-5.0); BILIRUBIN TOTAL 1.3 mg/dL (0.2-1.0); CALCIUM 8.6 mg/dL (8.5-10.1); CARBON DIOXIDE,CO2 27.6 mmol/L (21.0-32.0); CREATININE 1.13 mg/dL (0.51-1.17); EST CRCL DRUG DOSING (CG) 39.16 mL/min; POTASSIUM,K 4.1 mmol/L (3.5-5.1); PROTEIN TOTAL,TP 6.5 g/dL (6.4-8.2)
[2023-09-09 10:17] LABS: ANION GAP 11.5 meq/L (7-15)
[2023-09-10] MEDS: Menthol 10%/Methyl Salicylate 15% 85 GM Tube TOP PRN ×3 (00:50→21:26)
[2023-09-10] MEDS: Acetaminophen 325 MG Tab PO SCH ×4 (03:34→21:26)
[2023-09-10] MEDS: buPROPion 150 MG Tab.ER PO SCH (08:09)
[2023-09-10] MEDS: Multivitamin Tab PO SCH (08:10)
[2023-09-10] MEDS: Fish Oil/Omega-3 Fatty Acids 1 Gm Cap PO SCH (08:10)
[2023-09-10] MEDS: Tamsulosin 0.4 MG Cap.ER PO SCH (08:10)
[2023-09-10] MEDS: Cholecalciferol (Vitamin D3) 10 MCG Tab PO SCH (08:10)
[2023-09-10] MEDS: Sodium Chloride 1 GM Tab PO SCH (08:10)
[2023-09-10] MEDS: Polyethylene Glycol 3350 Powder 17 GM Packet PO SCH (08:10)
[2023-09-10] MEDS: Sotalol 80 MG Tab PO SCH ×2 (08:10→21:27)
[2023-09-10] MEDS: Rosuvastatin 10 MG Tab PO SCH (08:10)
[2023-09-10] MEDS: Bisacodyl 5 MG Tab PO SCH (08:11)
[2023-09-10] MEDS: Omeprazole 20 MG Cap.CR PO SCH (08:11)
[2023-09-10] MEDS: Fluticasone NASAL Spray 16 GM Bottle NASBOTH SCH (08:11)
[2023-09-10] MEDS: Levothyroxine 112 MCG Tab PO SCH (08:12)
[2023-09-10] MEDS: Melatonin 3 MG Tab PO PRN (21:26)
[2023-09-11] MEDS: Acetaminophen 325 MG Tab PO SCH ×2 (04:52→10:52)
[2023-09-11 07:24] VITALS: BP 124/87
[2023-09-11] MEDS: Multivitamin Tab PO SCH (07:45)
[2023-09-11] MEDS: buPROPion 150 MG Tab.ER PO SCH (07:45)
[2023-09-11] MEDS: Tamsulosin 0.4 MG Cap.ER PO SCH (07:45)
[2023-09-11] MEDS: Levothyroxine 112 MCG Tab PO SCH (07:45)
[2023-09-11] MEDS: Rosuvastatin 10 MG Tab PO SCH (07:45)
[2023-09-11] MEDS: Fish Oil/Omega-3 Fatty Acids 1 Gm Cap PO SCH (07:45)
[2023-09-11] MEDS: Omeprazole 20 MG Cap.CR PO SCH (07:46)
[2023-09-11] MEDS: Cholecalciferol (Vitamin D3) 10 MCG Tab PO SCH (07:46)
[2023-09-11] MEDS: Bisacodyl 5 MG Tab PO SCH (07:46)
[2023-09-11] MEDS: Sodium Chloride 1 GM Tab PO SCH (07:46)
[2023-09-11] MEDS: Sotalol 80 MG Tab PO SCH (07:46)
[2023-09-11 07:47] VITALS: PULSE 82
[2023-09-11] MEDS: Fluticasone NASAL Spray 16 GM Bottle NASBOTH SCH (07:47)
[2023-09-11] MEDS: Polyethylene Glycol 3350 Powder 17 GM Packet PO SCH (07:47)
[2023-09-11] MEDS ORDERED: oxyCODONE 5 MG Tab PO ONE (10:25)
== END 2023-09-11 10:57 | disposition hospice, inpatient (51) | DRG 560 ==
LOC: LL.MS 15:54
PROVIDERS: ADMIT Emergency Medicine; ATTEND Emergency Medicine
DX: S42.201D Unspecified fracture of upper end of right humerus, subsequent encounter for fracture with routine healing (principal); F05 Delirium due to known physiological condition; Z66 Do not resuscitate; G47.00 Insomnia, unspecified; F03.90 Unspecified dementia, unspecified severity, without behavioral disturbance, psychotic disturbance, mood disturbance, and anxiety; K59.00 Constipation, unspecified; E78.5 Hyperlipidemia, unspecified; M19.90 Unspecified osteoarthritis, unspecified site; F32.A Depression, unspecified; Z79.82 Long term (current) use of aspirin; Z79.899 Other long term (current) drug therapy
CPT/HCPCS: 36415; 71046; 73030-RT; 73060-RT; 80048; 80053; 81001; 82272; 83880; 84443; 85025; 97110-GO; 97110-GP; 97129-GO; 97162-GP; 97530-GO; 97530-GP; A9270-GY; J2270; J3490

== ENCOUNTER 2023-12-03 09:40 | Inpatient (IN) | payer MEDICARE, OTHER ==
[2023-12-03] MEDS ORDERED: GLYCOPYRROLATE 1 MG BUCCAL PRN (13:10)
[2023-12-03] MEDS ORDERED: Bisacodyl 10 MG Supp RECTAL PRN (13:10)
[2023-12-03] MEDS: Acetaminophen 325 MG Tab PO SCH (15:43)
[2023-12-03] MEDS ORDERED: SALIVA SUBSTITUTE COMBO NO 9 MOUTHWASH PO PRN (16:00)
[2023-12-03] MEDS ORDERED: Morphine Oral Concentrate 20 MG/ML 30 ML Bottle PO PRN (16:00)
[2023-12-03] MEDS: SALIVA SUBSTITUTE COMBO NO 9 MOUTHWASH PO SCH (17:23)
[2023-12-03] MEDS: Sotalol 80 MG Tab PO SCH (17:25)
[2023-12-03] MEDS: traZODone 50 MG Tab PO SCH (19:28)
[2023-12-03] MEDS: LORazepam 0.5 MG Tab PO PRN (21:22)
[2023-12-04] MEDS: Lidocaine 4% 1 each Patch TOP SCH (09:33)
[2023-12-04] MEDS: BUPROPRION 300 MG PO SCH (09:34)
[2023-12-04] MEDS: Tamsulosin 0.4 MG Cap.ER PO SCH (09:34)
[2023-12-04] MEDS: Fluticasone NASAL Spray 16 GM Bottle NASBOTH SCH (09:36)
[2023-12-04] MEDS: Aspirin 81 MG Tab.EC PO SCH (09:37)
[2023-12-04] MEDS: Polyethylene Glycol 3350 Powder 510 GM Bot PO SCH (09:42)
[2023-12-06 17:06] VITALS: BP 0/0; PULSE 0
[2023-12-07] MEDS: Ondansetron 4 MG Tab.DIS PO PRN (14:48)
== END 2023-12-08 11:00 | disposition hospice, home (50) | DRG 951 ==
LOC: LL.SWG 11:18
PROVIDERS: ADMIT Emergency Medicine; ATTEND Emergency Medicine
DX: Z51.5 Encounter for palliative care (principal); Z66 Do not resuscitate; J44.9 Chronic obstructive pulmonary disease, unspecified; H91.90 Unspecified hearing loss, unspecified ear; E78.00 Pure hypercholesterolemia, unspecified; M81.0 Age-related osteoporosis without current pathological fracture; F32.A Depression, unspecified; Z88.0 Allergy status to penicillin; Z79.82 Long term (current) use of aspirin; Z79.899 Other long term (current) drug therapy; Z86.73 Personal history of transient ischemic attack (TIA), and cerebral infarction without residual deficits; Z87.81 Personal history of (healed) traumatic fracture; Z98.890 Other specified postprocedural states
CPT/HCPCS: A9270-GY